=== PATIENT | male | born 1955 | race Caucasian/White ===

== ENCOUNTER 2017-07-09 08:37 | Inpatient (IN) | payer OTHER ==
[~2017-07-09] VITALS: Ht 182.9 cm; Wt 75.1 kg
[2017-07-09] VITALS (17 sets, daily range): BP systolic 113–144; BP diastolic 73–99; PULSE 49–122; TEMP 97.7–98.6
[~2017-07-09 08:37] MED LIST: ASPIRIN 81M81 MG/TA2 PO; ATIVAN 1MG T1 MG/TAB PO; B-1100 MG PO; FOLIC ACID 11 MG/TA1 PO; LANOXIN 0.120.125 MG PO; MULTIPLE VITAMI1 CAP PO; NICODERM C21 MG/PATC TOP; NO HOME MEDICATIONS; PRADAXA 150MG150 MG PO; TIKOSYN0.25 MG PO; ZESTRIL2.5 MG PO
[2017-07-09 09:06] LABS: HEMATOCRIT 51.1 % (42.0-52.0); HEMOGLOBIN 17.2 g/dl (13.5-18.0); MEAN CELL VOLUME 102 fl (80.0-100.0); MEAN CORPUSCULAR HEMOGLOBIN 34 pg (27.0-31.0); MEAN CORPUSCULAR HGB CONC 34 g/dl (33.0-37.0); MEAN PLATELET VOLUME 8.9 fl (7.4-10.4); PLATELET COUNT 173 K/mm3 (130-400); RED BLOOD COUNT 5.03 M/mm3 (4.20-5.60); WHITE BLOOD COUNT 9.8 K/mm3 (4.8-10.8)
[2017-07-09 09:17] LABS: PROTHROMBIN TIME 11.6 SECONDS (9.7-12.8)
[2017-07-09 09:35] LABS: CALCIUM 9.2 mg/dL (8.4-10.2); CREATININE, serum 1.03 mg/dL (0.66-1.25); POTASSIUM 3.7 mmol/L (3.4-5.0)
[2017-07-09] MEDS ORDERED: XARELTO20 MG PO (09:45)
[2017-07-09] MEDS ORDERED: CARDIZEM CD 18180 MG PO (09:46)
[2017-07-09] MEDS ORDERED: LOPRESSOR 225 MG/TAB PO (09:46)
[2017-07-09] MEDS ORDERED: FLOMAX 0.40.4 MG/CAP PO (09:47)
[2017-07-09] MEDS ORDERED: LASIX 20MG TABL20 MG PO (09:48)
[2017-07-09] MEDS ORDERED: TAPAZOLE5 MG PO (09:48)
[2017-07-10] VITALS (9 sets, daily range): BP systolic 99–131; BP diastolic 61–85; PULSE 45–97; TEMP 97.3–98.7
[2017-07-10 07:23] LABS: BASO % 0.4 % (0.0-2.0); EOS # 0.1 (0.0-0.7); EOS % 1.2 % (0-4.0); GRAN # 6.6 (1.4-6.5); GRAN % 72.9 % (42.2-75.2); HEMOGLOBIN 15.5 g/dl (13.5-18.0); LYMPH # 1.8 (1.2-3.4); MEAN CELL VOLUME 102 fl (80.0-100.0); MEAN CORPUSCULAR HEMOGLOBIN 34 pg (27.0-31.0); MEAN CORPUSCULAR HGB CONC 34 g/dl (33.0-37.0); MEAN PLATELET VOLUME 9.1 fl (7.4-10.4); MONO # 0.5 (0.1-0.6); MONO % 5.1 % (1.7-9.3); PLATELET COUNT 161 K/mm3 (130-400); WHITE BLOOD COUNT 9.1 K/mm3 (4.8-10.8)
[2017-07-10 07:43] LABS: CALCIUM 8.9 mg/dL (8.4-10.2); CREATININE, serum 1.09 mg/dL (0.66-1.25); POTASSIUM 4.3 mmol/L (3.4-5.0)
[2017-07-10 08:00] LABS: THYROID STIMULATING HORMONE 6.85 uIU/mL (0.465-4.680)
[2017-07-10 11:13] LABS: TSH w REFLEX 7.02 uIU/mL (0.465-4.680)
[2017-07-11 03:13] VITALS: BP 115/71; PULSE 50; TEMP 97.3
[2017-07-11 07:36] VITALS: BP 121/68; PULSE 75; TEMP 97.6
[2017-07-11 08:00] VITALS: BP 121/68; PULSE 75; TEMP 97.6
[2017-07-11] MEDS ORDERED: TOPROL XL 25MG25 MG PO ×2 (10:24→10:30)
[2017-07-11] MEDS ORDERED: BETAPACE 80MG80 MG PO (10:24)
[2017-07-11] MEDS ORDERED: ASPIRIN 81M81 MG/TA2 PO (10:26)
[2017-07-11] MEDS ORDERED: VASOTEC 5MG5 MG/TAB PO (10:32)
== END 2017-07-11 11:16 | disposition home or self-care (01) | DRG 287 ==
LOC: COL.CAR 08:37 → MEDICAL 14:10 → COL.CAR 14:20 → MEDICAL 15:00
PROVIDERS: Internal Medicine Cardiovascular Disease; Physician Assistant
PROC: B2111ZZ Fluoroscopy of Multiple Coronary Arteries using Low Osmolar Contrast (ICD-10-PCS; principal; 2017-07-09)
PROC: B2151ZZ Fluoroscopy of Left Heart using Low Osmolar Contrast (ICD-10-PCS; 2017-07-09)
PROC: 4A023N7 Measurement of Cardiac Sampling and Pressure, Left Heart, Percutaneous Approach (ICD-10-PCS; 2017-07-09)
PROC: 5A2204Z Restoration of Cardiac Rhythm, Single (ICD-10-PCS; 2017-07-11)
DX: I48.0 Paroxysmal atrial fibrillation (principal); I42.9 Cardiomyopathy, unspecified; N40.0 Benign prostatic hyperplasia without lower urinary tract symptoms; E03.9 Hypothyroidism, unspecified; I34.0 Nonrheumatic mitral (valve) insufficiency; F17.210 Nicotine dependence, cigarettes, uncomplicated
CPT/HCPCS: 99222; 99232-AI; C1760; C1769; C1894; J2250; J2704; J3010; Q9967

== ENCOUNTER 2018-11-14 14:55 | Day surgery (SDC) | payer OTHER ==
[~2018-11-14] VITALS: Ht 182.9 cm; Wt 77.4 kg
[2018-11-14] VITALS (8 sets, daily range): BP systolic 117–131; BP diastolic 81–89; PULSE 54–107; TEMP 97.4–97.6
[~2018-11-14 14:55] MED LIST changes: +BETAPACE 80MG80 MG PO; +CARDIZEM CD 18180 MG PO; +FLOMAX 0.40.4 MG/CAP PO; +LASIX 20MG TABL20 MG PO; +LOPRESSOR 225 MG/TAB PO; +TAPAZOLE5 MG PO; +TOPROL XL 25MG25 MG PO; +VASOTEC 5MG5 MG/TAB PO; +XARELTO20 MG PO
[2018-11-14] MEDS ORDERED: BETAPACE 120MG120 MG PO (15:35)
[2018-11-14] MEDS ORDERED: CLARITIN 1010 MG/TAB PO (15:35)
[2018-11-14] MEDS ORDERED: MOTRIN 200200 MG/TAB PO (15:36)
[2018-11-14] MEDS ORDERED: TAPAZOLE5 MG PO (15:36)
[2018-11-14] MEDS ORDERED: SEPTRA DS 8001 TAB PO (15:36)
--- NOTE | 2018-11-14 15:42 | NUR ---
Upon reviewing the patient's home medication it was found that he had been previously taking Xarelto 20 mg BID for A Fib but according to the efe's the patient "stopped taking it 2 months ago" because it "caused bleeding when he peed".
--- NOTE | 2018-11-14 16:03 | NUR ---
TO RM AT 1510- CALL LIGHT IN REACH AT BEDSIDE.
--- NOTE | 2018-11-14 19:45 | NUR ---
Pt. laying in bed with family at bedside. Pt. is A&OX3, assessment complete. IV to lt. forearm patent, IV fluids infusing per orders. Three-way talley with CBI. Urine is dark brown red at this time. Pt. reports feeling of needing to pee, urine is flowing, will give meds for pain per orders. Pt. denies further needs at this time. Call light within reach.
[2018-11-15 00:33] VITALS: BP 116/78; PULSE 86; TEMP 97.9
[2018-11-15 05:53] LABS: CALCIUM 8.8 mg/dL (8.4-10.2); CREATININE, serum 0.98 mg/dL (0.66-1.25); POTASSIUM 4.7 mmol/L (3.4-5.0)
[2018-11-15 07:47] VITALS: BP 102/60; PULSE 79; TEMP 98
--- NOTE | 2018-11-15 08:49 | NUR ---
Haney catheter discontinued per Drs order.
--- NOTE | 2018-11-15 09:00 | NUR ---
Patient alert and oriented, answers questions appropriately. See assessment. Haney catheter patent and draining clear mary urine, CBI stopped at this time. No c/o at this time.
[2018-11-15 12:11] VITALS: BP 110/66; PULSE 84; TEMP 98.3
--- NOTE | 2018-11-15 15:38 | NUR ---
18 guage IV DCd at this time. Cath intact. No redness or swelling noted.
--- NOTE | 2018-11-15 15:44 | NUR ---
Discharge instructions reviewed with patient and spouse, verbalizes understanding. Discharged via wheelchair to auto/home with spouse at 1540.
== END 2018-11-15 15:40 | disposition home or self-care (01) ==
LOC: SDCO 14:55 → SURG 18:40 → SDCO 11-15 15:40
PROVIDERS: Urology
DX: C67.0 Malignant neoplasm of trigone of bladder (principal); R97.20 Elevated prostate specific antigen [PSA]; R35.1 Nocturia; R30.0 Dysuria; I25.10 Atherosclerotic heart disease of native coronary artery without angina pectoris; I10 Essential (primary) hypertension; Z79.899 Other long term (current) drug therapy; F17.210 Nicotine dependence, cigarettes, uncomplicated; I42.9 Cardiomyopathy, unspecified; I11.0 Hypertensive heart disease with heart failure; I50.9 Heart failure, unspecified; E03.9 Hypothyroidism, unspecified
CPT/HCPCS: OP; J0690; J1100; J1170; J2310; J2370; J2405; J3010; J7120; Q9967

== ENCOUNTER 2019-01-14 05:25 | Day surgery (SDC) | payer OTHER ==
[~2019-01-14] VITALS: Ht 182.9 cm; Wt 76.0 kg
[~2019-01-14 05:25] MED LIST changes: +BETAPACE 120MG120 MG PO; +CLARITIN 1010 MG/TAB PO; +MOTRIN 200200 MG/TAB PO; +SEPTRA DS 8001 TAB PO
[2019-01-14 05:47] VITALS: BP 144/95; PULSE 70; TEMP 97.6
[2019-01-14] MEDS ORDERED: ZOFRAN8 MG PO (05:50)
[2019-01-14] MEDS ORDERED: BETAMETHASONE O15 GM TP (05:51)
[2019-01-14] MEDS ORDERED: CARDIZEM 60MG T60 MG PO (05:51)
[2019-01-14] MEDS ORDERED: [UNRECOGNIZED DRUG - CODE] TOP (05:51)
--- NOTE | 2019-01-14 06:10 | NUR ---
While obtianing the patient's vital signs with the dynamap the patient's pulse rate appeared to vary from 45 bpm to 123 bpm. The nurse asked the patient what a normal heart rate was for him and he states that he has a fib so it varies. He also informed the nurse that he has been off his cardiac medication due to recent blood in his stool. Upon auscultation the nurse found that the patient's heart sounded very irregular. The patient's previous med rec had sotalol listed as a home medicaiton and when asked if he is still taking this medication the patient stated that it "" because he "hasn't seen a plater supervisor in forever". The patient appears to be resting comfortably on the cart with his call light within reach. He denies any further needs and does not appear to be in any distress at this time. Will continue to monitor the patient. The patient's is at his bedside at this time.
[2019-01-14 08:09] VITALS: BP 118/77; PULSE 116; TEMP 98
--- NOTE | 2019-01-14 08:09 | NUR ---
The patient arrived back to [address] from the recovery room at this time. The patient appears alert and oriented and denies any pain or nausea at this time. The patient requests to try some ice water and toast at this time. The patient's post operative vital signs were started at this time. The patient's dressing and bandaid to his right upper chest appear without redness or edema. The patient's call light is within reach. The patient denies any needs at this time. Will continue to monitor the patient.
[2019-01-14 08:24] VITALS: BP 126/77; PULSE 96
--- NOTE | 2019-01-14 08:24 | NUR ---
The patient is sitting up in bed and apppears to be resting comfortably on the cart at this time. The patient denies any pain or nausea at this time. The patient appears to be tolerating the food and drink well. Will continue to monitor the patient.
[2019-01-14] MEDS ORDERED: NORCO 325 MG-51 TAB PO (08:33)
[2019-01-14 08:39] VITALS: BP 129/88; PULSE 90
--- NOTE | 2019-01-14 08:39 | NUR ---
The patient verbalizes a desire to be discharged home. The patient's IV to his right wrist was removed and a pressure dressing was applied to the site. The nurse instructed the patient to get dressed and notify the staff when he is ready to review his discharge paperwork.
--- NOTE | 2019-01-14 08:50 | NUR ---
Discharge instructions were reviewed with the patient at this time. He verbalized understanding and has no questions for the nurse at this time. The nurse called the patient's and is coming back to pick the patient up and drive him home.
--- NOTE | 2019-01-14 08:55 | NUR ---
The patient was escorted out via ambulation by JULIO CESAR Hooper. The patient's belongings and discharge paperwork were sent with him. The patient's is present to drive him home.
== END 2019-01-14 08:55 | disposition home or self-care (01) ==
LOC: SDCO 05:25
DX: C67.0 Malignant neoplasm of trigone of bladder (principal); I11.0 Hypertensive heart disease with heart failure; I50.9 Heart failure, unspecified; I48.2 Chronic atrial fibrillation; M19.90 Unspecified osteoarthritis, unspecified site; E03.9 Hypothyroidism, unspecified; F17.210 Nicotine dependence, cigarettes, uncomplicated; Z88.0 Allergy status to penicillin; Z88.6 Allergy status to analgesic agent; Z91.030 Bee allergy status; Z79.82 Long term (current) use of aspirin; I25.10 Atherosclerotic heart disease of native coronary artery without angina pectoris
CPT/HCPCS: C1788; J0690; J1644; J2704; J3010; J7120

== ENCOUNTER 2019-09-16 17:43 | Inpatient (IN) | payer MEDICARE, OTHER ==
[2019-09-16] VITALS (284 sets, daily range): BP systolic 93–110; BP diastolic 61–79; PULSE 96–136; TEMP 97.6–98.1; O2SAT 44–100
[~2019-09-16] VITALS: Ht 182.9 cm; Wt 64.9 kg
[~2019-09-16 17:43] MED LIST changes: +BETAMETHASONE O15 GM TP; +CARDIZEM 60MG T60 MG PO; +NORCO 325 MG-51 TAB PO; +ZOFRAN8 MG PO; +[UNRECOGNIZED DRUG - CODE] TOP
[2019-09-16] MEDS ORDERED: ROXICODONE 55 MG/TAB PO (19:31)
[2019-09-16] MEDS ORDERED: TOPROL XL 50MG50 MG PO (19:31)
[2019-09-16] MEDS ORDERED: CLARITIN 1010 MG/TAB PO (19:32)
[2019-09-16] MEDS ORDERED: XARELTO20 MG PO (19:32)
[2019-09-16] MEDS ORDERED: MOTRIN 400400 MG/TAB PO (19:35)
[2019-09-16] MEDS ORDERED: TUMS ULTRA ST1000 MG PO (19:36)
[2019-09-16] MEDS ORDERED: DULCOLAX STOOL100 MG PO (19:37)
[2019-09-16 22:04] LABS: MEAN CELL VOLUME 92 fl (80.0-100.0); MEAN CORPUSCULAR HGB CONC 32 g/dl (33.0-37.0); MEAN PLATELET VOLUME 10.4 fl (7.4-10.4); PLATELET COUNT 90 K/mm3 (130-400); RED BLOOD COUNT 2.38 M/mm3 (4.20-5.60); REDCELL DISTRIBUTION WIDTH-CV 14.3 % (11.5-14.5)
[2019-09-16 22:08] LABS: HEMOGLOBIN 7.1 g/dl (13.5-18.0); MEAN CORPUSCULAR HEMOGLOBIN 30 pg (27.0-31.0)
[2019-09-16 22:38] LABS: ALBUMIN 3.2 gm/dL (3.5-5.0); BILIRUBIN,TOTAL 0.7 mg/dL (0.0-1.0); CALCIUM 7.9 mg/dL (8.4-10.2); CREATININE, serum 1.75 (0.66-1.25); POTASSIUM 5.3 mmol/L (3.4-5.0); TOTAL PROTEIN 6.2 gm/dL (6.4-8.2)
[2019-09-16 22:43] LABS: IRON,SERUM 116 ug/dL (35-150)
[2019-09-16 22:53] LABS: TOTAL IRON BINDING CAPACITY 267 ug/dL (261-462)
[2019-09-16 23:05] LABS: COLLECTION METHOD UROSTOMY
[2019-09-16 23:21] LABS: BAND 16 % (0-10); EOSINOPHIL 1 % (0-4); LYMPHOCYTE 33 % (20.0-51.0); METAMYELOCYTE 2 % (0-0); NEUTROPHILS 42 % (42.0-75.2); PLATELET ESTIMATE DECREASED (NORMAL)
[2019-09-16 23:22] LABS: PH 6 (5-8); SQUAMOUS EPITHELIAL 0-2 /hpf; URINE APPEARANCE Clear; URINE BACTERIA None Seen /hpf; URINE BILIRUBIN Negative (NEGATIVE); URINE BLOOD 1+ (NEGATIVE); URINE COLOR Yellow; URINE GLUCOSE Negative (NEGATIVE); URINE KETONE Negative (NEGATIVE); URINE LEUKOCYTE ESTERASE 2+ (NEGATIVE); URINE NITRATE Negative (NEGATIVE); URINE PROTEIN(semi-quant) Negative (NEGATIVE); URINE UROBILINOGEN Negative (NEGATIVE)
[2019-09-17] VITALS (1408 sets, daily range): BP systolic 94–128; BP diastolic 60–86; PULSE 86–146; TEMP 97.2–98.5; O2SAT 50–100
[2019-09-17 01:02] LABS: MEAN CELL VOLUME 94 fl (80.0-100.0); MEAN CORPUSCULAR HGB CONC 32 g/dl (33.0-37.0); MEAN PLATELET VOLUME 9.6 fl (7.4-10.4); PLATELET COUNT 73 K/mm3 (130-400); RED BLOOD COUNT 2.01 M/mm3 (4.20-5.60); REDCELL DISTRIBUTION WIDTH-CV 14.1 % (11.5-14.5)
[2019-09-17 01:07] LABS: HEMATOCRIT 18.8 % (42.0-52.0); MEAN CORPUSCULAR HEMOGLOBIN 30 pg (27.0-31.0)
[2019-09-17 01:08] LABS: HEMOGLOBIN 6.1 g/dl (13.5-18.0)
[2019-09-17 01:17] LABS: CALCIUM 7.8 mg/dL (8.4-10.2); CHOLESTEROL RISK RATIO 5.8; CREATININE, serum 1.6 (0.66-1.25); POTASSIUM 5.3 mmol/L (3.4-5.0)
[2019-09-17 01:29] LABS: C-REACTIVE PROTEIN 14.3 mg/dL (0.0-0.9)
[2019-09-17 06:40] LABS: MEAN CELL VOLUME 93 fl (80.0-100.0); MEAN CORPUSCULAR HGB CONC 32 g/dl (33.0-37.0); MEAN PLATELET VOLUME 10.3 fl (7.4-10.4); PLATELET COUNT 84 K/mm3 (130-400); RED BLOOD COUNT 2.51 M/mm3 (4.20-5.60); REDCELL DISTRIBUTION WIDTH-CV 14.5 % (11.5-14.5)
[2019-09-17 06:45] LABS: HEMATOCRIT 23.3 % (42.0-52.0); HEMOGLOBIN 7.5 g/dl (13.5-18.0); MEAN CORPUSCULAR HEMOGLOBIN 30 pg (27.0-31.0)
[2019-09-17 07:20] LABS: ALBUMIN 3.1 gm/dL (3.5-5.0); BILIRUBIN,TOTAL 0.8 mg/dL (0.0-1.0); CALCIUM 8.2 mg/dL (8.4-10.2); CREATININE, serum 1.34 (0.66-1.25); POTASSIUM 4.8 mmol/L (3.4-5.0)
[2019-09-17 07:48] LABS: BAND 13 % (0-10); EOSINOPHIL 1 % (0-4); LYMPHOCYTE 35 % (20.0-51.0); NEUTROPHILS 47 % (42.0-75.2); NUCLEATED RED BLOOD CELL 3 (0-6); PLATELET ESTIMATE DECREASED (NORMAL)
[2019-09-17 07:49] LABS: METAMYELOCYTE 1 % (0-0); OVALOCYTES 1+
[2019-09-17 17:07] LABS: TRANSFERRIN 135 mg/dL (180-329)
[2019-09-18] VITALS (639 sets, daily range): BP systolic 98–127; BP diastolic 58–72; PULSE 77–109; TEMP 96.8–98.2; O2SAT 63–100
[2019-09-18 06:18] LABS: INR 2.5 (0.8-3.0); PROTHROMBIN TIME 30.4 SECONDS (9.7-12.8)
[2019-09-18 06:24] LABS: BILIRUBIN,TOTAL 0.7 mg/dL (0.0-1.0); CALCIUM 7.9 mg/dL (8.4-10.2); CREATININE, serum 1.21 (0.66-1.25); MAGNESIUM 1.9 mg/dL (1.6-2.3); POTASSIUM 4.9 mmol/L (3.4-5.0)
[2019-09-18 06:26] LABS: MEAN CELL VOLUME 92 fl (80.0-100.0); MEAN CORPUSCULAR HGB CONC 33 g/dl (33.0-37.0); MEAN PLATELET VOLUME 10.3 fl (7.4-10.4); PLATELET COUNT 78 K/mm3 (130-400); RED BLOOD COUNT 2.32 M/mm3 (4.20-5.60)
[2019-09-18 06:37] LABS: HEMATOCRIT 21.4 % (42.0-52.0); MEAN CORPUSCULAR HEMOGLOBIN 30 pg (27.0-31.0)
[2019-09-18 08:03] LABS: BAND 27 % (0-10); LYMPHOCYTE 24 % (20.0-51.0); METAMYELOCYTE 1 % (0-0); NEUTROPHILS 43 % (42.0-75.2); PLATELET ESTIMATE DECREASED (NORMAL)
[2019-09-18 08:04] LABS: ANISOCYTOSIS 1+
[2019-09-19] VITALS: BP 112/62; PULSE 95; TEMP 97.8
[2019-09-19 04:00] VITALS: BP 105/68; BP 98/61; PULSE 92; PULSE 97; TEMP 98.3
[2019-09-19 07:05] LABS: ALBUMIN 2.7 gm/dL (3.5-5.0); BILIRUBIN,TOTAL 0.6 mg/dL (0.0-1.0); CALCIUM 7.7 mg/dL (8.4-10.2); CREATININE, serum 0.94 (0.66-1.25); TOTAL PROTEIN 5.8 gm/dL (6.4-8.2)
[2019-09-19 07:15] LABS: MEAN CELL VOLUME 90 fl (80.0-100.0); MEAN CORPUSCULAR HGB CONC 33 g/dl (33.0-37.0); MEAN PLATELET VOLUME 9.2 fl (7.4-10.4); PLATELET COUNT 62 K/mm3 (130-400); RED BLOOD COUNT 2.25 M/mm3 (4.20-5.60); REDCELL DISTRIBUTION WIDTH-CV 14.7 % (11.5-14.5)
[2019-09-19 07:26] LABS: HEMATOCRIT 20.2 % (42.0-52.0); HEMOGLOBIN 6.7 g/dl (13.5-18.0); MEAN CORPUSCULAR HEMOGLOBIN 30 pg (27.0-31.0)
[2019-09-19 08:35] VITALS: BP 111/61; PULSE 115; TEMP 98.1
[2019-09-19 09:53] LABS: BAND 42 % (0-10); LYMPHOCYTE 34 % (20.0-51.0); METAMYELOCYTE 1 % (0-0); NEUTROPHILS 18 % (42.0-75.2)
[2019-09-19 09:55] LABS: PLATELET ESTIMATE DECREASED (NORMAL)
[2019-09-19 09:56] LABS: HYPOCHROMIA 3+
[2019-09-19 09:58] LABS: ANISOCYTOSIS 1+
[2019-09-19 11:31] VITALS: BP 110/58; PULSE 109; TEMP 97.7
[2019-09-19 16:37] VITALS: BP 113/66; PULSE 121; TEMP 98.2
[2019-09-19 20:00] VITALS: BP 95/69; PULSE 113; PULSE 117; TEMP 98.4
[2019-09-20] VITALS (10 sets, daily range): BP systolic 91–116; BP diastolic 58–90; PULSE 56–154; TEMP 96.8–98.1
[2019-09-20 06:35] LABS: MEAN CELL VOLUME 93 fl (80.0-100.0); MEAN CORPUSCULAR HGB CONC 32 g/dl (33.0-37.0); MEAN PLATELET VOLUME 10.8 fl (7.4-10.4); PLATELET COUNT 104 K/mm3 (130-400); RED BLOOD COUNT 2.65 M/mm3 (4.20-5.60); REDCELL DISTRIBUTION WIDTH-CV 15.1 % (11.5-14.5)
[2019-09-20 06:46] LABS: ALBUMIN 3.1 gm/dL (3.5-5.0); BILIRUBIN,TOTAL 0.6 mg/dL (0.0-1.0); CALCIUM 8.3 mg/dL (8.4-10.2); CREATININE, serum 1.01 (0.66-1.25); MAGNESIUM 1.9 mg/dL (1.6-2.3); PHOSPHOROUS 2.6 mg/dL (2.5-4.5); POTASSIUM 4.3 mmol/L (3.4-5.0); TOTAL PROTEIN 6.5 gm/dL (6.4-8.2)
[2019-09-20 06:54] LABS: HEMATOCRIT 24.5 % (42.0-52.0); HEMOGLOBIN 7.9 g/dl (13.5-18.0); MEAN CORPUSCULAR HEMOGLOBIN 30 pg (27.0-31.0)
[2019-09-20 09:33] LABS: BAND 34 % (0-10); EOSINOPHIL 1 % (0-4); HYPOCHROMIA 1+; LYMPHOCYTE 36 % (20.0-51.0); METAMYELOCYTE 4 % (0-0); MYELOCYTE 1 % (0-0); NEUTROPHILS 13 % (42.0-75.2); PLATELET ESTIMATE DECREASED (NORMAL); POIKILOCYTOSIS 3+
[2019-09-21] VITALS (8 sets, daily range): BP systolic 94–138; BP diastolic 52–97; PULSE 69–143; TEMP 97.4–98.5
[2019-09-21 07:45] LABS: ALBUMIN 3.1 gm/dL (3.5-5.0); BILIRUBIN,TOTAL 0.4 mg/dL (0.0-1.0); CALCIUM 7.8 mg/dL (8.4-10.2); CREATININE, serum 1.11 (0.66-1.25); MAGNESIUM 1.9 mg/dL (1.6-2.3); POTASSIUM 3.6 mmol/L (3.4-5.0); TOTAL PROTEIN 6.3 gm/dL (6.4-8.2)
[2019-09-21 07:47] LABS: MEAN CELL VOLUME 93 fl (80.0-100.0); MEAN CORPUSCULAR HGB CONC 32 g/dl (33.0-37.0); MEAN PLATELET VOLUME 11.3 fl (7.4-10.4); PLATELET COUNT 101 K/mm3 (130-400); RED BLOOD COUNT 2.52 M/mm3 (4.20-5.60); REDCELL DISTRIBUTION WIDTH-CV 15.2 % (11.5-14.5)
[2019-09-21 08:16] LABS: HEMATOCRIT 23.3 % (42.0-52.0); HEMOGLOBIN 7.5 g/dl (13.5-18.0); MEAN CORPUSCULAR HEMOGLOBIN 30 pg (27.0-31.0)
[2019-09-21 10:44] LABS: BAND 12 % (0-10); EOSINOPHIL 1 % (0-4); LYMPHOCYTE 42 % (20.0-51.0); METAMYELOCYTE 2 % (0-0); MYELOCYTE 1 % (0-0); NEUTROPHILS 42 % (42.0-75.2); NUCLEATED RED BLOOD CELL 1 (0-6); OVALOCYTES 1+; PLATELET ESTIMATE DECREASED (NORMAL)
[2019-09-22 04:09] VITALS: BP 109/74; PULSE 82; TEMP 97.6
[2019-09-22 06:04] LABS: MEAN CELL VOLUME 93 fl (80.0-100.0); MEAN CORPUSCULAR HGB CONC 33 g/dl (33.0-37.0); MEAN PLATELET VOLUME 10.1 fl (7.4-10.4); PLATELET COUNT 83 K/mm3 (130-400); RED BLOOD COUNT 2.53 M/mm3 (4.20-5.60); REDCELL DISTRIBUTION WIDTH-CV 15.2 % (11.5-14.5)
[2019-09-22 06:11] LABS: HEMATOCRIT 23.4 % (42.0-52.0); HEMOGLOBIN 7.6 g/dl (13.5-18.0); MEAN CORPUSCULAR HEMOGLOBIN 30 pg (27.0-31.0)
[2019-09-22 06:19] LABS: ALBUMIN 2.9 gm/dL (3.5-5.0); BILIRUBIN,TOTAL 0.6 mg/dL (0.0-1.0); CREATININE, serum 1.08 (0.66-1.25); POTASSIUM 4.4 mmol/L (3.4-5.0); TOTAL PROTEIN 5.9 gm/dL (6.4-8.2)
[2019-09-22 07:00] LABS: BAND 18 % (0-10); LYMPHOCYTE 31 % (20.0-51.0); MYELOCYTE 3 % (0-0); NEUTROPHILS 48 % (42.0-75.2); SCHISTOCYTES 1+
[2019-09-22 07:01] LABS: PLATELET ESTIMATE DECREASED (NORMAL)
[2019-09-22 07:20] LABS: INR 1.5 (0.8-3.0); PROTHROMBIN TIME 17.2 SECONDS (9.7-12.8)
[2019-09-22 07:55] VITALS: BP 125/74; PULSE 140; TEMP 98.2
[2019-09-22 11:45] VITALS: BP 111/84; PULSE 79; TEMP 97.6
[2019-09-22 15:33] VITALS: BP 109/72; PULSE 71; TEMP 97.5
[2019-09-23 08:50] VITALS: BP 95/68; PULSE 76; TEMP 97.4
[2019-09-23] MEDS ORDERED: LANOXIN 0.120.125 MG PO (11:28)
[2019-09-23] MEDS ORDERED: MIRALAX510G PO (11:29)
[2019-09-23] MEDS ORDERED: CIPRO 500MG TA500 MG PO (11:31)
[2019-09-23] MEDS ORDERED: FENTANYL 50MCG TD (11:32)
[2019-09-23] MEDS ORDERED: ZOFRAN 4MG T4 MG/TAB PO (11:35)
[2019-09-23] MEDS ORDERED: TOPROL XL 25MG25 MG PO (11:39)
[2019-09-23] MEDS ORDERED: ROXANOL 20MG20 MG/ML SL (11:39)
[2019-09-23] MEDS ORDERED: ROXICODONE 55 MG/TAB PO (20:10)
== END 2019-09-23 15:55 | disposition home health service (06) | DRG 542 ==
LOC: ICU 17:43 → SURG 09-20 15:40
PROVIDERS: Family Medicine; Nurse Practitioner Family; ADMIT Hospitalist
DX: C79.51 Secondary malignant neoplasm of bone (principal); E43 Unspecified severe protein-calorie malnutrition; N39.0 Urinary tract infection, site not specified; I42.0 Dilated cardiomyopathy; R64 Cachexia; N17.9 Acute kidney failure, unspecified; E87.2 Acidosis; I13.0 Hypertensive heart and chronic kidney disease with heart failure and stage 1 through stage 4 chronic kidney disease, or unspecified chronic kidney disease; I50.30 Unspecified diastolic (congestive) heart failure; I48.20 Chronic atrial fibrillation, unspecified; Z51.5 Encounter for palliative care; C67.9 Malignant neoplasm of bladder, unspecified; I08.3 Combined rheumatic disorders of mitral, aortic and tricuspid valves; I27.20 Pulmonary hypertension, unspecified; I25.10 Atherosclerotic heart disease of native coronary artery without angina pectoris; N18.9 Chronic kidney disease, unspecified; R79.1 Abnormal coagulation profile; Z66 Do not resuscitate; D64.9 Anemia, unspecified; R09.81 Nasal congestion; D69.6 Thrombocytopenia, unspecified; E87.5 Hyperkalemia; E05.90 Thyrotoxicosis, unspecified without thyrotoxic crisis or storm; N50.3 Cyst of epididymis; G89.3 Neoplasm related pain (acute) (chronic); N43.3 Hydrocele, unspecified; Z87.891 Personal history of nicotine dependence; Z90.6 Acquired absence of other parts of urinary tract; Z91.030 Bee allergy status; Z79.01 Long term (current) use of anticoagulants; Z92.21 Personal history of antineoplastic chemotherapy; Z87.442 Personal history of urinary calculi; Z79.891 Long term (current) use of opiate analgesic; Z88.0 Allergy status to penicillin; Z88.8 Allergy status to other drugs, medicaments and biological substances
CPT/HCPCS: OP; 99223-AI; 99233-AI; 99239; A4216; A9503; A9585; J0696; J1170; J1200; J1940; J2185; J3370; J7030; J7050; J7120; P9016

== ENCOUNTER 2019-09-26 05:41 | Inpatient (IN) | payer MEDICARE, OTHER ==
[2019-09-26] VITALS (248 sets, daily range): BP systolic 74–131; BP diastolic 25–81; PULSE 87–117; TEMP 96–98.3; O2SAT 74–100
[~2019-09-26] VITALS: Ht 182.9 cm; Wt 64.1 kg
[~2019-09-26 05:41] MED LIST changes: +CIPRO 500MG TA500 MG PO; +DULCOLAX STOOL100 MG PO; +FENTANYL 50MCG TD; +MIRALAX510G PO; +MOTRIN 400400 MG/TAB PO; +ROXANOL 20MG20 MG/ML SL; +ROXICODONE 55 MG/TAB PO; +TOPROL XL 50MG50 MG PO; +TUMS ULTRA ST1000 MG PO; +ZOFRAN 4MG T4 MG/TAB PO
--- NOTE | 2019-09-26 07:55 | NUR ---
Patient admitted to [facility] by 2 EMS via stretcher. Patient able to move himself from stretcher to IMCU bed with difficulty. Patient has much labored breathing, is pale, and not fully oriented at this time. He knows his name, but does not know time or place. Patient somewhat oriented to situation. Patient states his mouth is very dry and would like something to relieve that. Patient placed on 3L oxygen via nasal cannula, but patient continues to take off nasal cannula at this time. Patient reoriented frequently.
--- NOTE | 2019-09-26 08:15 | NUR ---
Cardizem initiated on admit at 5mg/hr. Patient's blood pressure at 0815 is 80/46 and cardizem discontinued at this time. MD montez.
[2019-09-26 10:04] LABS: MEAN CELL VOLUME 100 fl (80.0-100.0); MEAN CORPUSCULAR HGB CONC 30 g/dl (33.0-37.0); MEAN PLATELET VOLUME 10.9 fl (7.4-10.4); REDCELL DISTRIBUTION WIDTH-CV 16.3 % (11.5-14.5)
[2019-09-26 10:07] LABS: INR 2.6 (0.8-3.0); PROTHROMBIN TIME 31.1 SECONDS (9.7-12.8)
[2019-09-26 10:15] LABS: ALBUMIN 2.9 gm/dL (3.5-5.0); BILIRUBIN,TOTAL 1.4 mg/dL (0.0-1.0); CALCIUM 8.1 mg/dL (8.4-10.2); CREATININE, serum 2.17 (0.66-1.25); MAGNESIUM 2.7 mg/dL (1.6-2.3); TOTAL PROTEIN 5.9 gm/dL (6.4-8.2)
[2019-09-26 10:18] LABS: POTASSIUM 6.8 mmol/L (3.4-5.0)
[2019-09-26 10:43] LABS: HEMOGLOBIN 6.8 g/dl (13.5-18.0); MEAN CORPUSCULAR HEMOGLOBIN 30 pg (27.0-31.0); PLATELET COUNT 47 K/mm3 (130-400)
--- NOTE | 2019-09-26 11:47 | NUR ---
Plan: To transfer to [facility]. Assess: SW met with patient and if room for DC. Carmencita Pearl , Home phone . reports that patient has attempted chemo and has a stint, receieved one treatment and had kidney failure. indicated that the patient uses a wheelchair, west, and crutches for mobility, also has a hospital bed at home. Patient is currently intermittent with O2. Patient is a DNR and has DPOA. SW obtained copy of DPOA and Placed in Chart. PCP is Dr. Alia Hall at [facility]. Patient obtians medications from [facility]. Family chose [facility] for eolc. Action: MONICA confirmed family choice. MONICA made contact with MONICA at [facility] Autumn about transfer. Awaiting acceptance for 09/27/2019 for comfort care. MONICA will fax packet to [facility]. Will F/U
--- NOTE | 2019-09-26 11:53 | NUR ---
FMLA paperwork from Tangela, patient's , given to RN for physician to sign and return. Paperwork paperclipped and placed on patient's chart at this time.
--- NOTE | 2019-09-26 12:25 | NUR ---
Duct Maker stopped by while spouse was in room. Visited briefly and nothing else needed at this time.
[2019-09-26 14:16] LABS: BAND 2 % (0-10); LYMPHOCYTE 54 % (20.0-51.0); NEUTROPHILS 41 % (42.0-75.2); NUCLEATED RED BLOOD CELL 1 (0-6); PLATELET ESTIMATE DECREASED (NORMAL)
[2019-09-26 14:17] LABS: ANISOCYTOSIS 2+; BURR CELLS 1+
[2019-09-26] MEDS ORDERED: FENTANYL 50MCG TD (15:14)
[2019-09-26] MEDS ORDERED: ROXANOL 20MG20 MG/ML SL (15:14)
[2019-09-26] MEDS ORDERED: ATIVAN 0.50.5 MG/TAB PO (15:14)
[2019-09-26] MEDS ORDERED: ROXICODONE 55 MG/TAB PO (15:14)
--- NOTE | 2019-09-26 15:33 | NUR ---
Comfort care orders initiated at this time. Patient is reoriented and repositioned for comfort at this time. Bed in lowest position. Side rails up x3. All personal belongings within reach of the patient. Call light within reach.
--- NOTE | 2019-09-26 16:05 | NUR ---
Patient continues to sleep between disturbances and has no complaints or concerns at this time.
--- NOTE | 2019-09-26 18:16 | NUR ---
Tangela lundberg to get update on patient at this time. Patient is lying in bed sleeping with relaxed breathing. Patient is not connected monitor at this time due to comfort care status.
--- NOTE | 2019-09-26 18:55 | NUR ---
Patient checked on and is agonal breathing. Patient has no pulse at this time. Patient connected to bedside monitor and found to have PEA. Apical pulse assessed with stethoscope by 2 ICU RNs and patient is found to have no apical pulse at this time. TOD noted to be 1900. ICU broker in charge, fire supervisor, Yolanda NGUYEN, and Tangela (patient's ) called and updated on patient's status at this time. Patient is repositioned in bed.
--- NOTE | 2019-09-28 07:53 | NUR ---
Per Steve FIELD OPERATIONS FARM MANAGER, patient was discharged from hospital via home at 0400 on 09/27/2019 from room [id number].
== END 2019-09-28 07:55 | disposition expired | DRG 309 ==
LOC: MEDICAL 05:41 → IMCU 07:20 → EU 22:17
PROVIDERS: Nurse Practitioner Family; ADMIT Hospitalist
DX: I48.91 Unspecified atrial fibrillation (principal); D61.818 Other pancytopenia; C79.51 Secondary malignant neoplasm of bone; I50.22 Chronic systolic (congestive) heart failure; I13.0 Hypertensive heart and chronic kidney disease with heart failure and stage 1 through stage 4 chronic kidney disease, or unspecified chronic kidney disease; Z51.5 Encounter for palliative care; I95.9 Hypotension, unspecified; I42.0 Dilated cardiomyopathy; G89.3 Neoplasm related pain (acute) (chronic); C67.9 Malignant neoplasm of bladder, unspecified; E05.90 Thyrotoxicosis, unspecified without thyrotoxic crisis or storm; Z66 Do not resuscitate; D63.0 Anemia in neoplastic disease; D63.1 Anemia in chronic kidney disease; I08.1 Rheumatic disorders of both mitral and tricuspid valves; N18.9 Chronic kidney disease, unspecified; I27.20 Pulmonary hypertension, unspecified; Z87.440 Personal history of urinary (tract) infections; Z88.5 Allergy status to narcotic agent; Z88.0 Allergy status to penicillin; Z91.030 Bee allergy status; Z79.891 Long term (current) use of opiate analgesic; Z87.891 Personal history of nicotine dependence
CPT/HCPCS: 99223-AI; J7030; J7042